=== PATIENT | female | born 1955 | race Caucasian/White ===

== ENCOUNTER 2025-02-19 11:35 | Day surgery (SDC) | payer MEDICARE, OTHER ==
[~2025-02-19] VITALS: Ht 162.6 cm; Wt 115.2 kg
[~2025-02-19 11:35] MED LIST: ACET-683 PO; ALBU8.5H INH; ALLO100T PO; AMOX875T2 PO; AZEL1SPR3; BD P32MI SC; D-10TAB2 PO; DOXY100T PO; FERR1TAB8 PO; FERR324T2 PO; FLUO40CA PO; FLUT1BLS3 INH; KP F1200 PO; LANTINJ4 SC; LISI20TA37 PO; LORA-930 PO; MAGN400T35 PO; METF10004 PO; MIDAZOLAM INJ 2 MG/2 ML VIAL As Ordered ONE; MONT10TA97 PO; MUCI600T31 PO; PHENYLEPHRINE 10% OPHTH SOL 5ML OS PRN; PROP80TA PO; REFR0.5D8 OU; SAM-400T3 PO; THERTAB52 PO; TIRZ10PE INJ; VITA1TAB82 PO
[2025-02-19] MEDS: TROPICAMIDE 1% OPHTH SOLN 15ML OS SCH (12:35)
[2025-02-19] MEDS: OFLOXACIN 0.3 % (OCUFLOX) OPTH SOL 5ML OS ONE (12:35)
[2025-02-19] MEDS: LIDOCAINE 3.5% 1 ML OPHTH TOPICAL GEL OU ONE (12:35)
[2025-02-19] MEDS: PHENYLEPHRINE 2.5% OPHTH SOL 2ML OS SCH (12:36)
[2025-02-19] MEDS: CYCLOPENTOLATE 1% OPHTH SOLN 2 ML BTL OS SCH (12:36)
[2025-02-19] MEDS: LIDOCAINE 1% SDV 5 ML VIAL As Ordered ONE (13:27)
[2025-02-19] MEDS: BSS IRRIG/VANCO(10MG)/TOBRA(5MG)/EPINEPH(1:1000-0.5CC)500ML BAG-ORONLY As Ordered ONE (13:27)
[2025-02-19] MEDS: CEFUROXIME 1 MG/0.1 ML INTRACAMERAL INJ As Ordered ONE (13:31)
[2025-02-19 13:37] VITALS: BP 102/62; TEMP 96.9; O2SAT 96
== END 2025-02-19 13:37 | disposition home or self-care (01) ==
LOC: M SDC 11:35
PROVIDERS: ATTEND Ophthalmology
DX: E11.36 Type 2 diabetes mellitus with diabetic cataract (principal); H25.12 Age-related nuclear cataract, left eye; I10 Essential (primary) hypertension; E78.00 Pure hypercholesterolemia, unspecified; D64.9 Anemia, unspecified; J45.909 Unspecified asthma, uncomplicated; G47.30 Sleep apnea, unspecified; G43.909 Migraine, unspecified, not intractable, without status migrainosus; Z79.899 Other long term (current) drug therapy; Z79.4 Long term (current) use of insulin
CPT/HCPCS: 66984; J0697; J2250; J3010; V2632

== ENCOUNTER 2025-03-05 07:07 | Day surgery (SDC) | payer MEDICARE, OTHER ==
[~2025-03-05] VITALS: Ht 162.6 cm; Wt 118.0 kg
[~2025-03-05 07:07] MED LIST changes: +PHENYLEPHRINE 10% OPHTH SOL 5ML OD PRN; -PHENYLEPHRINE 10% OPHTH SOL 5ML OS PRN
[2025-03-05] MEDS: OFLOXACIN 0.3 % (OCUFLOX) OPTH SOL 5ML OD ONE (08:35)
[2025-03-05] MEDS: LIDOCAINE 3.5% 1 ML OPHTH TOPICAL GEL OU ONE (08:36)
[2025-03-05] MEDS: CYCLOPENTOLATE 1% OPHTH SOLN 2 ML BTL OD SCH (08:36)
[2025-03-05] MEDS: TROPICAMIDE 1% OPHTH SOLN 15ML OD SCH (08:37)
[2025-03-05] MEDS: PHENYLEPHRINE 2.5% OPHTH SOL 2ML OD SCH (08:38)
[2025-03-05] MEDS: LIDOCAINE 1% SDV 5 ML VIAL As Ordered ONE (09:37)
[2025-03-05] MEDS: BSS IRRIG/VANCO(10MG)/TOBRA(5MG)/EPINEPH(1:1000-0.5CC)500ML BAG-ORONLY As Ordered ONE (09:38)
[2025-03-05] MEDS: CEFUROXIME 1 MG/0.1 ML INTRACAMERAL INJ As Ordered ONE (09:38)
[2025-03-05 09:50] VITALS: BP 132/57; TEMP 97; O2SAT 94
== END 2025-03-05 10:07 | disposition home or self-care (01) ==
LOC: M SDC 07:07
PROVIDERS: ATTEND Ophthalmology
DX: E11.36 Type 2 diabetes mellitus with diabetic cataract (principal); H25.11 Age-related nuclear cataract, right eye; I10 Essential (primary) hypertension; J45.909 Unspecified asthma, uncomplicated; E78.00 Pure hypercholesterolemia, unspecified; G47.30 Sleep apnea, unspecified; D64.9 Anemia, unspecified; Z79.4 Long term (current) use of insulin; Z79.899 Other long term (current) drug therapy
CPT/HCPCS: 66984; J0697; J2250; J3010; V2632